=== PATIENT | female | born 1990 | race African-American/Black ===

== ENCOUNTER 2017-06-03 20:38 | Emergency (ER) | payer OTHER | END 2017-06-03 21:46 | disposition left against medical advice (07) | LOC: D.ER 20:38 | DX: F41.0 Panic disorder [episodic paroxysmal anxiety] (principal) ==

== ENCOUNTER 2017-09-01 16:39 | Emergency (ER) | payer SELFPAY ==
[~2017-09-01] VITALS: Ht 167.6 cm; Wt 101.4 kg
[2017-09-01 16:47] VITALS: Ht 167.6 cm; Wt 101.4 kg
[2017-09-01 17:25] LABS: BASOPHILS 0.5 % (0-2); EOSINOPHILS 2.8 % (0-7); HEMATOCRIT 34.4 % (36.0-48.0); IMMATURE GRANULOCYTES 0.5 % (0-5); LYMPHOCYTES 20.9 % (15-50); MCH 27.7 pg (26.0-34.0); MCV 86.6 fL (80.0-100.0); MEAN PLATELET VOLUME 9.5 fL (7.4-10.4); MONOCYTES 5.5 % (2-11); NEUTROPHILS 69.8 % (40-80); PLATELET COUNT 277 10x3/uL (130-400); RBC 3.97 10x6/uL (4.00-5.40); RDW 14.1 % (11.5-14.5); WBC 6.1 10x3/uL (4.8-10.8)
[2017-09-01 18:00] LABS: ALBUMIN 3.5 g/dL (3.4-5.0); ANION GAP 11.2 mmol/L (8-16); BILIRUBIN - TOTAL 0.33 mg/dL (0.2-1.3); CALCIUM 8.8 mg/dL (8.5-10.1); CARBON DIOXIDE 26.2 mmol/L (21.0-32.0); CREATININE - SERUM 1.1 mg/dL (0.6-1.3); POTASSIUM - SERUM 4.4 mmol/L (3.5-5.1); PROTEIN - SERUM 7.6 g/dL (6.4-8.2)
[2017-09-01] MEDS ORDERED: DILANTIN100 MG PO (18:03)
[2017-09-01] MEDS ORDERED: ATIVAN1 MG PO (18:08)
[2017-09-01 18:57] VITALS: BP 122/80
== END 2017-09-01 18:58 | disposition home or self-care (01) ==
LOC: D.ER 16:39
PROVIDERS: Family Medicine
DX: G40.909 Epilepsy, unspecified, not intractable, without status epilepticus (principal)

== ENCOUNTER 2018-02-14 08:49 | Emergency (ER) | payer MEDICAID ==
[~2018-02-14] VITALS: Ht 167.6 cm; Wt 9.1 kg
[~2018-02-14 08:49] MED LIST: ATIVAN1 MG PO; DILANTIN100 MG PO
[2018-02-14 08:52] VITALS: BP 144/84; Ht 167.6 cm; Wt 9.1 kg
[2018-02-14] MEDS ORDERED: AUGMENTIN 875-11 TAB PO (09:35)
[2018-02-14] MEDS ORDERED: FLUTICASONE PRO16 GM NASAL (09:35)
[2018-02-14] MEDS ORDERED: TORADOL10 MG PO (21:08)
[2018-02-14] MEDS ORDERED: ZOFRAN8 MG PO (21:08)
== END 2018-02-14 09:46 | disposition home or self-care (01) ==
LOC: D.ER 08:49
DX: J01.90 Acute sinusitis, unspecified (principal); G40.909 Epilepsy, unspecified, not intractable, without status epilepticus

== ENCOUNTER 2018-02-14 19:30 | Emergency (ER) | payer MEDICAID ==
[~2018-02-14] VITALS: Ht 167.6 cm; Wt 100.0 kg
[~2018-02-14 19:30] MED LIST changes: +AUGMENTIN 875-11 TAB PO; +FLUTICASONE PRO16 GM NASAL
[2018-02-14 19:36] VITALS: Ht 167.6 cm; Wt 100.0 kg
[2018-02-14] MEDS ORDERED: TORADOL10 MG PO (21:08)
[2018-02-14] MEDS ORDERED: ZOFRAN8 MG PO (21:08)
[2018-02-14 21:38] LABS: BASOPHILS 0.2 % (0-2); EOSINOPHILS 1.9 % (0-7); HEMATOCRIT 31.6 % (36.0-48.0); HEMOGLOBIN 10.1 g/dL (12-16); IMMATURE GRANULOCYTES 0.1 % (0-5); MCH 27.7 pg (26.0-34.0); MCV 86.6 fL (80.0-100.0); MEAN PLATELET VOLUME 9.6 fL (7.4-10.4); MONOCYTES 6.3 % (2-11); NEUTROPHILS 79.5 % (40-80); PLATELET COUNT 292 10x3/uL (130-400); RBC 3.65 10x6/uL (4.00-5.40); RDW 16.3 % (11.5-14.5); WBC 13.9 10x3/uL (4.8-10.8)
[2018-02-14 21:50] LABS: ALBUMIN 3.4 g/dL (3.4-5.0); ALKALINE PHOSPHATASE 77 U/L (46-116); ALT (SGPT) 12 U/L (10-68); BILIRUBIN - TOTAL 1.06 mg/dL (0.2-1.3); CALC OSMOLALITY 275 mosm/kg (275-300); CALCIUM 8.5 mg/dL (8.5-10.1); CARBON DIOXIDE 22.8 mmol/L (21.0-32.0); CHLORIDE - SERUM 105 mmol/L (98-107); CREATININE - SERUM 0.7 mg/dL (0.6-1.3); GLUCOSE 86 mg/dL (74-106); POTASSIUM - SERUM 3.7 mmol/L (3.5-5.1); PROTEIN - SERUM 7.4 g/dL (6.4-8.2); SODIUM 139 mmol/L (136-145); UREA NITROGEN 10 mg/dL (7-18); eGFR NON AFRICAN AMERICAN > 90 mL/min (90-120)
[2018-02-14 22:26] VITALS: BP 131/72
== END 2018-02-14 22:28 | disposition home or self-care (01) ==
LOC: D.ER 19:30
PROVIDERS: Family Medicine
DX: J01.90 Acute sinusitis, unspecified (principal); F17.200 Nicotine dependence, unspecified, uncomplicated

== ENCOUNTER 2019-09-18 20:12 | Emergency (ER) | payer MEDICAID ==
[~2019-09-18] VITALS: Ht 167.6 cm; Wt 91.8 kg
[~2019-09-18 20:12] MED LIST changes: +TORADOL10 MG PO; +ZOFRAN8 MG PO
[2019-09-18 20:33] VITALS: Ht 167.6 cm; Wt 91.8 kg
[2019-09-18] MEDS ORDERED: CELEXA20 MG PO (20:35)
[2019-09-18 21:14] LABS: BASOPHILS 0.4 % (0-2); EOSINOPHILS 2.7 % (0-7); HEMOGLOBIN 12.2 g/dL (12-16); MCH 30.3 pg (26.0-34.0); MEAN PLATELET VOLUME 9.3 fL (7.4-10.4); NEUTROPHILS 58.9 % (40-80); RBC 4.02 10x6/uL (4.00-5.40); WBC 5.6 10x3/uL (4.8-10.8)
[2019-09-18 21:16] LABS: PLATELET COUNT 389 10x3/uL (130-400)
[2019-09-18 21:38] LABS: ANION GAP 20.7 mmol/L (8-16); CALCIUM 7.7 mg/dL (8.5-10.1); CREATININE - SERUM 1.4 mg/dL (0.6-1.3); POTASSIUM - SERUM 3.7 mmol/L (3.5-5.1)
[2019-09-18 21:43] LABS: BILIRUBIN - TOTAL 0.36 mg/dL (0.2-1.3); MAGNESIUM - SERUM 2.2 mg/dL (1.8-2.4); PROTEIN - SERUM 7.8 g/dL (6.4-8.2)
--- NOTE | 2019-09-18 22:07 | NUR ---
DR YANG NOTIFIED AND REVIEWED PT's BEHAVIOR AND ASSESSMENT RESULTS. PT IS A LOW RISK PER DR YANG. DR YANG STATED TO GIVE RESOURCES TO PATIENT AT TIME OF DISCHARGE. NO FURTHER ORDERS AT THIS TIME. RESOURCES REVIEWED WITH PT AND SHE VERBALIZED UNDERSTANDING.
[2019-09-18] MEDS ORDERED: TORADOL10 MG PO (22:27)
[2019-09-18] MEDS ORDERED: ORAL ANALGESIC9 GM TOPICAL (22:28)
[2019-09-18 22:43] VITALS: BP 132/88
== END 2019-09-18 22:43 | disposition home or self-care (01) ==
LOC: D.ER 20:12
PROVIDERS: Family Medicine
DX: K08.89 Other specified disorders of teeth and supporting structures (principal); Z72.0 Tobacco use